=== PATIENT | male | born 1955 | race Caucasian/White ===

== ENCOUNTER → 2020-09-25 | Outpatient (CLI) | payer MEDICARE, OTHER ==
--- NOTE | 2020-09-25 12:42 | RAD ---
Examination: MRI of the left shoulder without contrast History: History of left shoulder pain COMPARISON: None TECHNIQUE: Multiplanar, multisequence MR imaging of the left shoulder performed without contrast. FINDINGS: The long of the biceps tendon is not well-visualized. Examination limited due to metallic artifact in the humerus head. There is full-thickness tear of the supraspinatus, infraspinatus tendon with tendo n retraction up to the level of the glenoid. There is tear of the subscapularis tendon in the superio r fibers of the tendon. Increased signal identified in the rotator cuff likely tendinosis. There is superior translation of t he humerus head within the glenoid. There is extension of fluid into the subacromial subdeltoid bursa from the shoulder joint. Examination limited due to motion artifact. The acromion is type II. Fatty atrophic changes of the [place]ohnston praspinatus, infraspinatus muscles. Moderate joint space loss identified in the glenohumeral joint, midline likely degenerative changes. There is mild obscuration of fat in the rotator interval. IMPRESSION: 1. Full-thickness tear of the supraspinatus, infraspinatus tendon with retraction up to the glenoid. Possible tear and retraction of the superior fibers of the subscapularis tendon. 2. Moderate degenerative changes glenohumeral joint, acromioclavicular joint. 3. Obscuration of fat in the rotator interval. Correlate for adhesive capsulitis. Electronically signed by: Ezra Roth MD (09/25/2020 12:39 PM) [id number]
== END ==
LOC: MRI 11:01
PROVIDERS: ATTEND Physician Assistant
DX: M19.012 Primary osteoarthritis, left shoulder (principal); M75.102 Unspecified rotator cuff tear or rupture of left shoulder, not specified as traumatic
CPT/HCPCS: 73221